=== PATIENT | male | born 1970 | race Caucasian/White ===

== ENCOUNTER → 2017-06-14 | Outpatient (CLI) | payer OTHER ==
--- NOTE | 2017-06-14 15:52 | RADIOLOGY REPORT PS360 ---
US RUQ-(ABD LTD)1ORGAN/QUAD/FU HISTORY: Elevated liver enzymes ELEVATED LIVER FUNCTION ORDERING PHYSICIAN: Antonino Matos MD PATIENT AGE: 47 years COMPARISON: None FINDINGS: PANCREAS:Unremarkable. No obvious mass or abnormal fluid collection. No ductal dilatation LIVER:Mild fatty liver. No focal liver lesions or biliary dilatation. There is appropriate direction of the portal blood flow in portal vein is normal in size. RIGHT KIDNEY:Unremarkable. Normal size and echogenicity. No hydronephrosis GALLBLADDER:No gallstones, gallbladder wall thickening, pericholecystic fluid, or biliary dilatation. IMPRESSION: 1. Fatty liver. 2. Otherwise negative right upper quadrant ultrasound. No gallstones appearance
== END ==
LOC: RAD 08:45
DX: R79.89 Other specified abnormal findings of blood chemistry (principal); R94.5 Abnormal results of liver function studies